=== PATIENT | female | born 1980 | race Caucasian/White ===

== ENCOUNTER 2021-07-13 07:58 | Outpatient (CLI) | payer BC ==
[2021-07-13 15:08] LABS: SARS-CoV-2 PCR by NAA Not Detected (NotDetected)
== END 2021-07-13 07:59 | disposition home or self-care (01) ==
LOC: CSHLAB 07:58
PROVIDERS: ATTEND Internal Medicine Critical Care Medicine
DX: Z20.822 Contact with and (suspected) exposure to COVID-19 (principal)
CPT/HCPCS: U0003; U0005

== ENCOUNTER 2021-07-16 07:30 | Outpatient (CLI) | payer BC | END 2021-07-16 07:31 | disposition home or self-care (01) | LOC: CSHCP 07:30 | PROVIDERS: ATTEND Internal Medicine Critical Care Medicine | DX: D86.0 Sarcoidosis of lung (principal); R94.2 Abnormal results of pulmonary function studies | CPT/HCPCS: 94010; 94726; 94729; 94760 ==

== ENCOUNTER 2023-03-07 08:29 | Outpatient (CLI) | payer BC | END 2023-03-07 08:30 | disposition home or self-care (01) | LOC: CSHCP 08:29 | PROVIDERS: ATTEND Internal Medicine Critical Care Medicine | DX: D86.9 Sarcoidosis, unspecified (principal); J44.9 Chronic obstructive pulmonary disease, unspecified | CPT/HCPCS: 94060; 94726; 94729; 94760 ==

== ENCOUNTER 2025-02-04 12:44 | Outpatient (CLI) | payer BC | END 2025-02-04 12:45 | disposition home or self-care (01) | LOC: CSHCP 12:44 | PROVIDERS: ATTEND Internal Medicine Critical Care Medicine | DX: D86.9 Sarcoidosis, unspecified (principal); J44.9 Chronic obstructive pulmonary disease, unspecified | CPT/HCPCS: 94010; 94726; 94729; 94760 ==